=== PATIENT | male | born 2000 | race Caucasian/White ===

== ENCOUNTER 2020-05-30 16:28 | Emergency (ER) | payer MEDICAID ==
[~2020-05-30] VITALS: Ht 182.9 cm; Wt 72.6 kg
[2020-05-30 16:31] VITALS: BP 147/88
[2020-05-30 17:30] VITALS: BP 147/88
== END 2020-05-30 17:30 | disposition home or self-care (01) ==
LOC: MED 16:28
DX: S91.311A Laceration without foreign body, right foot, initial encounter (principal); F12.10 Cannabis abuse, uncomplicated; W45.8XXA Other foreign body or object entering through skin, initial encounter; Y93.89 Activity, other specified; Y92.89 Other specified places as the place of occurrence of the external cause; Y99.8 Other external cause status
CPT/HCPCS: 99282

== ENCOUNTER 2020-06-01 19:38 | Emergency (ER) | payer MEDICAID ==
[~2020-06-01] VITALS: Ht 182.9 cm; Wt 74.4 kg
[2020-06-01 20:05] VITALS: BP 138/65
--- NOTE | 2020-06-01 20:09 | NUR ---
PT AMBULATED TO BED 12 WITH STEADY GAIT.
[2020-06-01 20:56] VITALS: BP 138/65
== END 2020-06-01 20:51 | disposition home or self-care (01) ==
LOC: MED 19:38
DX: L03.115 Cellulitis of right lower limb (principal); K21.9 Gastro-esophageal reflux disease without esophagitis; F41.9 Anxiety disorder, unspecified; F17.200 Nicotine dependence, unspecified, uncomplicated
CPT/HCPCS: 90471; 90715; 99283

== ENCOUNTER 2023-10-12 20:50 | Emergency (ER) | payer SELFPAY ==
[~2023-10-12] VITALS: Ht 182.9 cm; Wt 91.6 kg
[2023-10-12 21:47] VITALS: BP 160/117; PULSE 97; RESP 16; TEMP 98; O2SAT 99
[2023-10-13] MEDS ORDERED: LIDOCAINE MPF 1% 10 MG/ML VIAL INJ ONE (01:10)
== END 2023-10-13 02:05 | disposition home or self-care (01) ==
LOC: MED 20:50
DX: S91.112A Laceration without foreign body of left great toe without damage to nail, initial encounter (principal); K21.9 Gastro-esophageal reflux disease without esophagitis; Z79.899 Other long term (current) drug therapy; X58.XXXA Exposure to other specified factors, initial encounter; Y93.89 Activity, other specified; Y92.89 Other specified places as the place of occurrence of the external cause; Y99.8 Other external cause status
CPT/HCPCS: 12001; 99282; J2001

== ENCOUNTER 2023-10-23 19:38 | Emergency (ER) | payer MEDICAID ==
[~2023-10-23] VITALS: Ht 182.9 cm; Wt 93.9 kg
[2023-10-23 20:00] VITALS: BP 161/94; PULSE 92; RESP 16; TEMP 98; O2SAT 98
== END 2023-10-23 20:31 | disposition home or self-care (01) ==
LOC: MED 19:38
DX: S91.312D Laceration without foreign body, left foot, subsequent encounter (principal); Z48.00 Encounter for change or removal of nonsurgical wound dressing; X58.XXXD Exposure to other specified factors, subsequent encounter
CPT/HCPCS: 99281

== ENCOUNTER 2023-11-02 13:06 | Emergency (ER) | payer MEDICAID ==
[~2023-11-02] VITALS: Ht 182.9 cm; Wt 93.7 kg
[2023-11-02 13:16] VITALS: BP 140/107; PULSE 88; RESP 19; TEMP 97.8; O2SAT 99
== END 2023-11-02 14:01 | disposition home or self-care (01) ==
LOC: MED 13:06
DX: S91.311D Laceration without foreign body, right foot, subsequent encounter (principal); Z48.02 Encounter for removal of sutures; K21.9 Gastro-esophageal reflux disease without esophagitis; X58.XXXD Exposure to other specified factors, subsequent encounter
CPT/HCPCS: 99281